=== PATIENT | female | born 1970 | race African-American/Black ===

== ENCOUNTER 2017-04-09 20:46 | Emergency (ER) | payer OTHER ==
--- NOTE | 2017-04-10 01:03 | ER Document Report ---
HPI - HPI Patient complains to provider of: tongue burning Pain Level: 0 Context: Patient is a 46-year-old female who admits to burning underneath her tongue after eating spicy chicken this evening. 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 Otherwise she denies any tingling in her lips, face, difficulty breathing, difficulty swallowing, nausea, vomiting, hives. Patient tolerating solids and liquids without any difficulty. - CARDIOVASCULAR Cardiovascular: DENIES: Chest pain Past Medical History - Social History Smoking Status: Never Smoker Family History: Reviewed & Not Pertinent Patient has suicidal ideation: No Patient has homicidal ideation: No Renal/ Medical History: Denies: Hx Peritoneal Dialysis Vertical Provider Document - CONSTITUTIONAL Notes: PHYSICAL EXAM GENERAL: Alert, interacts well. HEAD: Normocephalic, atraumatic. EYES: Pupils equal, round, and reactive to light. Extraocular movements intact. ENT: Oral mucosa moist, tongue midline. NECK: Full range of motion. Supple. Trachea midline. Uvula midline. Airway patent. No evidence of tonsillar enlargement, peritonsillar abscess, retropharyngeal abscess. LUNGS: Clear to auscultation bilaterally, no wheezes, rales, or rhonchi. No respiratory distress. HEART: Regular rate and rhythm. No murmurs, gallops, or rubs. ABDOMEN: Soft, nondistended, nontender. No guarding, rebound, or rigidity.. Bowel sounds present in all 4 quadrants. EXTREMITIES: Moves all 4 extremities spontaneously. No edema, radial and dorsalis pedis pulses 2/4 bilaterally. No cyanosis. NEUROLOGICAL: Alert and oriented x4. Normal speech. PSYCH: Normal affect, normal mood. SKIN: Warm, dry, normal turgor. No rashes or lesions noted. - INFECTION CONTROL TRAVEL OUTSIDE OF THE [place] IN LAST 30 DAYS: No - RESPIRATORY O2 Sat by Pulse Oximetry: 100 Course - Re-evaluation Re-evalutation: 04/10/17 01:02 Patient is a 46-year-old female who is hemodynamically stable, no acute distress afebrile. Vitals otherwise within normal limits at time of arrival. No respiratory, GI, cardiovascular, or oral pharyngeal symptoms. Will recommend ongoing antihistamine therapy as an outpatient. At this time will discharge with return precautions and follow-up recommendations. Verbal discharge instructions given a the bedside and opportunity for questions given. Medication warnings reviewed. Patient is in agreement with this plan and has verbalized understanding of return precautions and the need for primary care follow-up in the next 24-72 hours. - Vital Signs Vital signs: Temp Pulse Resp BP Pulse Ox 98.8 F 86 18 132/103 H 100 04/09/17 21:05 04/09/17 21:05 04/09/17 21:05 04/09/17 21:05 04/09/17 21:05 Discharge - Discharge Clinical Impression: Tongue irritation Condition: Good Disposition: HOME, SELF-CARE Additional Instructions: No evidence of allergic reaction today Please be sure to follow up with your primary care physician regarding your allergy testing Referrals: MARY REYES MD [Primary Care Provider] - Follow up as needed
[2017-04-10 01:44] VITALS: BP 136/78
== END 2017-04-10 01:43 | disposition home or self-care (01) ==
LOC: ER 20:46
DX: K14.6 Glossodynia (principal); Z91.018 Allergy to other foods
CPT/HCPCS: 99283